=== PATIENT | female | born 1980 | race Caucasian/White ===

== ENCOUNTER 2022-03-18 08:00 | Outpatient (RCR) | payer OTHER | END 2022-03-20 | disposition home or self-care (01) | LOC: WSST | DX: R49.0 Dysphonia (principal); R13.10 Dysphagia, unspecified; K21.9 Gastro-esophageal reflux disease without esophagitis; J38.00 Paralysis of vocal cords and larynx, unspecified ==

== ENCOUNTER 2022-04-08 07:57 | Outpatient (RCR) | payer OTHER | END 2022-04-20 | disposition home or self-care (01) | LOC: WSST | DX: R49.0 Dysphonia (principal); R13.10 Dysphagia, unspecified; J38.00 Paralysis of vocal cords and larynx, unspecified; K21.9 Gastro-esophageal reflux disease without esophagitis ==

== ENCOUNTER 2022-05-06 08:03 | Outpatient (RCR) | payer OTHER | END 2022-05-20 | disposition home or self-care (01) | LOC: WSST | DX: R13.10 Dysphagia, unspecified (principal); R49.0 Dysphonia; K21.9 Gastro-esophageal reflux disease without esophagitis ==